=== PATIENT | female | born 1985 | race African-American/Black ===

== ENCOUNTER 2017-01-05 13:39 | Emergency (ER) | payer OTHER ==
[~2017-01-05] VITALS: Ht 162.6 cm; Wt 63.5 kg
[2017-01-05 14:25] VITALS: BP 150/97
[2017-01-05] MEDS ORDERED: Norco 5mg/325mg tab ORAL ONE (15:00)
--- NOTE | 2017-01-05 15:23 | Emergency Room Report ---
History of Present Illness General Chief Complaint: Earache Source: Patient Present Illness HPI 31-year-old female presents to the emergency department complaining of 6/10 in severity pain in the right ear x3 days. Patient denies fevers, chills, drainage or discharge from the ear. Patient denies ear swelling or history of known foreign body. Patient states she does use Q-tips. Patient denies loss of hearing, tinnitus. Patient reports hearing is muffled from the affected ear. Denies recent upper respiratory infection, nasal congestion or rhinorrhea. Denies CP, Palpitations, LOC, AMS, dizziness, Changes in Vision, Sensation, paresthesias, or a sudden severe headache. Allergies: Coded Allergies: No Known Allergies (Unverified , 01/05/17) Patient History Past Medical History: see triage record Past Surgical History: none Pertinent Family History: none Now: No Immunizations: UTD Reviewed Nursing Documentation: PMH: Agreed, PSxH: Agreed Nursing Documentation-PMH Past Medical History: No History, Except For Hx Seizures: Yes Review of Systems All Other Systems: negative except mentioned in HPI Physical Exam Vital Signs Date Time Temp Pulse Resp B/P (MAP) Pulse Ox O2 Delivery O2 Flow Rate FiO2 01/05/17 13:45 98.1 95 16 150/97 98 Room Air Sp02 EP Interpretation: reviewed, normal General Appearance: no apparent distress, alert, GCS 15, non-toxic Head: normocephalic, atraumatic Eyes: bilateral eye normal inspection, bilateral eye PERRL ENT: hearing grossly normal, normal voice, other Neck: full range of motion, supple/symm/no masses Respiratory: chest non-tender, lungs clear, normal breath sounds, speaking full sentences Cardiovascular #1: regular rate, rhythm Rectal: deferred Musculoskeletal: back normal, gait/station normal, normal range of motion, non- tender Neurologic: alert, oriented x3, responsive, motor strength/tone normal, sensory intact, speech normal Psychiatric: judgement/insight normal, memory normal, mood/affect normal Skin: normal color, no rash, warm/dry, well hydrated Medical Decision Making PA Attestation Dr. Lee is my supervising Physician whom patient management has been discussed with. Diagnostic Impression: Primary Impression: Ear foreign body Qualified Codes: T16.1XXA - Foreign body in right ear, initial encounter Additional Impression: Ear canal abrasion Qualified Codes: S00.411A - Abrasion of right ear, initial encounter ER Course 31-year-old female presents to the emergency department complaining of 6/10 in severity pain in the right ear x3 days. Patient denies fevers, chills, drainage or discharge from the ear. Patient denies ear swelling or history of known foreign body. Patient states she does use Q-tips. Patient denies loss of hearing, tinnitus. Patient reports hearing is muffled from the affected ear. Denies recent upper respiratory infection, nasal congestion or rhinorrhea. Denies CP, Palpitations, LOC, AMS, dizziness, Changes in Vision, Sensation, paresthesias, or a sudden severe headache. Ddx considered but are not limited to OM, OE, mastoiditis, TM perforation, FB Vital signs: are WNL, pt. is afebrile H&PE are most consistent with multiple FB's of the Right Ear ORDERS: none required at this time, the diagnosis is clinical -OTOSCOPY: mulitple fb's white cotton appearance ED INTERVENTIONS: - Verbal consent was obtained by pt. for manual removal of Fb's. Three attempts to remove FB with alligator, - Pt. tolerated well. There is new onset canal abrasion secondary to removal attempts. Discussed with patient that as I am unable to remove foreign bodies from the ears successfully she will follow up with An ENT specialist for removal. DISCHARGE: At this time pt. is stable for d/c to home. With topical ABX. Will provide printed patient care instructions, and any necessary prescriptions. Care plan and follow up instructions have been discussed with the patient prior to discharge. Last Vital Signs Date Time Temp Pulse Resp B/P (MAP) Pulse Ox O2 Delivery O2 Flow Rate FiO2 01/05/17 14:25 98.1 80 16 150/97 98 Room Air Disposition: HOME, SELF-CARE Condition: Stable Scripts Ibuprofen* (MOTRIN*) 400 Mg Tablet 400 MG ORAL THREE TIMES A DAY, #30 TAB 0 Refills Prov: Aysha Bal P.A. 01/05/17 Hydrocodone Bit/Acetaminophen 5-325* (NORCO 5-325*) 1 Each Tablet 1 TAB ORAL Q6H Y for For Pain, #3 TAB 0 Refills Prov: Aysha Bal P.A. 01/05/17 Ciprofloxacin/Hydrocortisone (CIPRO HC OTIC SUSPENSION) 10 Ml Drops.susp 5 ML OT BID, #10 ML Prov: Aysha Bal 01/05/17 Referrals: [facility],REFERRING (PCP) Patient Instructions: Ear Foreign Body Additional Instructions: Take medications as directed. Follow up with an ENT SPECIALIST 3-5 days, even if your symptoms have resolved. --Please review list of primary care clinics, if you do not already have a primary care provider Return sooner to ED if new symptoms occur, or current symptoms become worse. - Please note that this Emergency Department Report was dictated using [employer] technology software, occasionally this can lead to erroneous entry secondary to interpretation by the dictation equipment. Aysha Bal Jan 05, 2017 15:23
[2017-01-05] MEDS ORDERED: NORCO 5-325 TA1 EACH ORAL (15:26)
[2017-01-05] MEDS ORDERED: IBUPROFEN400 MG ORAL (15:26)
[2017-01-05] MEDS ORDERED: CIPRO HC OTIC S10 M1 OT (15:26)
[2017-01-05 15:29] VITALS: BP 146/91
== END 2017-01-05 15:35 | disposition home or self-care (01) ==
LOC: EMR 14:26
DX: T16.1XXA Foreign body in right ear, initial encounter (principal); S00.411A Abrasion of right ear, initial encounter; X58.XXXA Exposure to other specified factors, initial encounter; Y93.9 Activity, unspecified; Y99.9 Unspecified external cause status; H92.01 Otalgia, right ear; Z86.69 Personal history of other diseases of the nervous system and sense organs
CPT/HCPCS: 99284